=== PATIENT | female | born 1990 ===

== ENCOUNTER 2021-12-16 19:47 | Inpatient (IN) | payer BC ==
[2021-12-16] MEDS ORDERED: Water For Irrigation,Sterile 1,000 ML Container IRR PRN (20:03)
[2021-12-16] MEDS ORDERED: Ondansetron 4 MG/2 ML SDV IVPUSH PRN (20:03)
[2021-12-16] MEDS ORDERED: Butorphanol 1 MG/ML SDV IVPUSH PRN (20:03)
[2021-12-16] MEDS ORDERED: Methylergonovine 0.2 MG/1 ML Amp IM PRN (20:03)
[2021-12-16] MEDS ORDERED: Misoprostol 25 MCG (1/4 of 100 MCG) Tab VAG PRN (20:03)
[2021-12-16] MEDS ORDERED: Terbutaline 1 MG/ML SDV SUBCUT PRN (20:03)
[2021-12-16] MEDS ORDERED: Tranexamic Acid 1,000 MG in Sodium Chloride 0.9% 100 ML IV PRN (20:03)
[2021-12-16] MEDS ORDERED: Sodium Chloride 0.9% 10 ML Syringe FLUSH PRN (20:03)
[2021-12-16] MEDS ORDERED: Sodium Chloride 0.9% 20 ML SDV IV PRN (20:03)
[2021-12-16] MEDS ORDERED: Nalbuphine 10 MG/1 ML Vial IVPUSH PRN (20:03)
[2021-12-16] MEDS ORDERED: Misoprostol 200 MCG Tab PO PRN (20:03)
[2021-12-16] MEDS ORDERED: Carboprost Tromethamine 250 MCG/1 ML Amp IM PRN (20:03)
[2021-12-16] MEDS ORDERED: Lidocaine 1% 50 ML MDV INJECT PRN (20:03)
[2021-12-16] MEDS ORDERED: Oxytocin/0.9 % Sodium Chloride 30 UNIT/500 ML BAG IV SCH ×2 (20:15)
[2021-12-17] MEDS: Misoprostol 25 MCG (1/4 of 100 MCG) Tab VAG PRN ×2 (01:38→05:52)
[2021-12-17] MEDS: Lactated Ringers 1,000 ML IV SCH ×4 (11:18→22:01)
[2021-12-17] MEDS ORDERED: Ropivacaine HCl/PF 100 ML ONE (11:53)
[2021-12-17] MEDS ORDERED: ePHEDrine 50 MG/ML SDV IVPUSH PRN (12:05)
[2021-12-17] MEDS ORDERED: Ropivacaine HCl/PF 200 MG in Premix Bag 1 BAG EPIDUR SCH (12:15)
[2021-12-17] MEDS ORDERED: Ampicillin 2 GM in Sodium Chloride 0.9% 100 ML IV ONE (19:09)
[2021-12-17] MEDS ORDERED: Acetaminophen 500 MG Tab PO ONE (19:11)
[2021-12-17] MEDS ORDERED: GENTAMICIN IV ONE (20:00)
[2021-12-17] MEDS ORDERED: SODIUM CHLORIDE 0.9% IV ONE (20:00)
[2021-12-17] MEDS: Benzonatate 100 MG Cap PO PRN (20:57)
[2021-12-18] MEDS ORDERED: Bisacodyl 10 MG Supp RECTAL PRN (02:00)
[2021-12-18] MEDS ORDERED: Witch Hazel Medicated Pads 40/Jar TOP PRN (02:00)
[2021-12-18] MEDS ORDERED: Benzocaine/Menthol 20%-0.5% Spray 78 GM Cannister TOP PRN (02:00)
[2021-12-18] MEDS ORDERED: oxyCODONE 5 MG Tab PO PRN (02:00)
[2021-12-18] MEDS ORDERED: Lanolin 100% Cream 7 GM Tube TOP PRN (02:00)
[2021-12-18] MEDS ORDERED: Ibuprofen 400 MG Tab PO PRN (02:00)
[2021-12-18] MEDS ORDERED: Acetaminophen 500 MG Tab PO PRN ×2 (02:00)
[2021-12-18] MEDS ORDERED: Ibuprofen 800 MG Tab PO PRN (02:00)
[2021-12-18] MEDS: Ampicillin 2 GM in Sodium Chloride 0.9% 100 ML IV SCH ×4 (02:19→20:30)
[2021-12-18] MEDS: Docusate Sodium 100 MG Cap PO PRN (03:11)
[2021-12-18] MEDS: Lactated Ringers 1,000 ML IV SCH (03:14)
[2021-12-18] MEDS ORDERED: Lactated Ringers 1,000 ML IV SCH (04:30)
[2021-12-18 08:13] LABS: BLOOD UREA NITROGEN,BUN 9 mg/dL (7.0-18.0); CARBON DIOXIDE,CO2 21.4 mmol/L (21.0-32.0); CHLORIDE,CL 106 mmol/L (98-107); GLUCOSE RANDOM 120 mg/dL (74-106); POTASSIUM,K 4.2 mmol/L (3.5-5.1); SODIUM,NA 137 mmol/L (136-145)
[2021-12-18] MEDS: Benzonatate 100 MG Cap PO PRN (16:35)
[2021-12-19 06:52] LABS: BLOOD UREA NITROGEN,BUN 8 mg/dL (7.0-18.0); CARBON DIOXIDE,CO2 24.4 mmol/L (21.0-32.0); CHLORIDE,CL 105 mmol/L (98-107); GLUCOSE RANDOM 85 mg/dL (74-106); POTASSIUM,K 3.8 mmol/L (3.5-5.1); SODIUM,NA 136 mmol/L (136-145)
[2021-12-19] MEDS: Benzonatate 100 MG Cap PO PRN (07:01)
[2021-12-19] MEDS ORDERED: Iron Sucrose Complex 500 MG in Sodium Chloride 0.9% 250 ML IV ONE (09:15)
[2021-12-19] MEDS ORDERED: ferumoxytoL 510 MG in Sodium Chloride 0.9% 100 ML IV ONE (09:45)
[2021-12-19] MEDS: Docusate Sodium 100 MG Cap PO PRN (10:00)
== END 2021-12-19 13:25 | disposition home or self-care (01) | DRG 542 ==
LOC: MW.OB 19:47 → MW.OBCHECK 19:47 → MW.OB 20:04 → MW.OBCHECK 20:04 → OBSVTOIN 12-18 01:00 → MW.OB 12-18 08:12
PROVIDERS: ADMIT Obstetrics & Gynecology; ATTEND Obstetrics & Gynecology
PROC: 10E0XZZ Delivery of Products of Conception, External Approach (ICD-10-PCS; principal; 2021-12-18)
PROC: 10907ZC Drainage of Amniotic Fluid, Therapeutic from Products of Conception, Via Natural or Artificial Opening (ICD-10-PCS; 2021-12-18)
PROC: 0DQR0ZZ Repair Anal Sphincter, Open Approach (ICD-10-PCS; 2021-12-18)
PROC: 0U7C7ZZ Dilation of Cervix, Via Natural or Artificial Opening (ICD-10-PCS; 2021-12-18)
PROC: 3E0P7VZ Introduction of Hormone into Female Reproductive, Via Natural or Artificial Opening (ICD-10-PCS; 2021-12-18)
PROC: 3E0R3BZ Introduction of Anesthetic Agent into Spinal Canal, Percutaneous Approach (ICD-10-PCS; 2021-12-18)
PROC: 00HU33Z Insertion of Infusion Device into Spinal Canal, Percutaneous Approach (ICD-10-PCS; 2021-12-18)
PROC: 10H07YZ Insertion of Other Device into Products of Conception, Via Natural or Artificial Opening (ICD-10-PCS; 2021-12-18)
DX: O48.0 Post-term pregnancy (principal); Z3A.40 40 weeks gestation of pregnancy; Z37.0 Single live birth; O99.02 Anemia complicating childbirth; D64.9 Anemia, unspecified; O70.20 Third degree perineal laceration during delivery, unspecified; O41.1230 Chorioamnionitis, third trimester, not applicable or unspecified; O77.0 Labor and delivery complicated by meconium in amniotic fluid; Z20.822 Contact with and (suspected) exposure to COVID-19
CPT/HCPCS: 01967; 36415; 51702; 59025; 59409; 80053; 80170; 82803; 83605; 85025; 85027; 86592; 86850; 86900; 86901; A9270-GY; J0290; J0595; J1580; J2001; J2370; J2405; J2590; J2795; J7120; Q0138